=== PATIENT | female | born 1970 | race Caucasian/White ===

== ENCOUNTER → 2020-09-23 | Outpatient (CLI) | payer MEDICARE ==
[~2020-09-23] MED LIST: ECOTRIN81 MG PO; LASIX40 MG PO; LISINOPRIL10 MG PO; POTASSIUM CHLO10 MEQ PO; SYMBICORT 80-10.2 GM INH; VENTOLIN HFA 66.7 GM INH
== END ==
LOC: MAMO 08-01 14:00
DX: Z12.31 Encounter for screening mammogram for malignant neoplasm of breast (principal)
CPT/HCPCS: 77063; 77067

== ENCOUNTER → 2021-09-17 | Outpatient (CLI) | payer MEDICARE | LOC: KOH-I 13:54 | DX: F17.210 Nicotine dependence, cigarettes, uncomplicated (principal); R91.8 Other nonspecific abnormal finding of lung field | CPT/HCPCS: 71271 ==